=== PATIENT | female | born 2000 | race African-American/Black ===

== ENCOUNTER 2024-10-27 01:09 | Emergency (ER) | payer MEDICAID, OTHER ==
[~2024-10-27] VITALS: Ht 167.6 cm; Wt 120.0 kg
[2024-10-27] MEDS: NALOXONE HCL 0.4 MG/ML VIAL IV ONE (02:00)
[2024-10-27] MEDS: SODIUM CHLORIDE 0.9% 2,000 ML IV ONE (02:00)
--- NOTE | 2024-10-27 02:09 | ED.PDOC ---
Psychiatric HPI Comments 23-year-old female came to ER for mental health issues. Patient is an extremely poor informant. Patient has no train of thought, with poor eye contact, speaking random words, some incomprehensible and sometimes incoherent. She appears to be homeless. When questioned if she takes any alcohol or drugs, she said yes, "but not recently", and she was unable to say which drug she took. Unsure if she is suicidal or not. Unsure also if she is having hallucinations. Chief Complaint: Mental Health Time Seen by MD: 02:07 Reviewed Notes: Nurses Notes Information Source: Patient Mode of Arrival: Ambulatory Severity: Unable to Care for Self, Unable to Control Self Severity of Pain: None Severity of Mental Status: Severe Severity of Symptoms: Severe Timing: Hours Duration: Since onset Prehospital treatment: None Presents with: Unclear Thinking, Bizarre Behavior Circumstance: Causing a Disturbance Current substance abuse: Amphetamines, None (Fentanyl) Stressors: Homeless History of: Substance Abuse Quality: Confusion Associated signs and symptoms: Hopeless, Anxiety, Amphetamines, Agitation, Confusion Past Medical History PAST MEDICAL HISTORY: Pt Confused Surgical History: Pt Confused [employer] History: Pt Confused Family History Family History: Pt Confused Social History Smoker: Pt Confused Alcohol: Pt Confused Drugs: Methamphetamine, Other (Fentanyl) Lives In: Pt Confused Constitutional: denies: chills, diaphoresis, fatigue, fever, malaise, sweats, weakness, others EENTM: denies: blurred vision, double vision, ear bleeding, ear discharge, ear drainage, ear pain, ear ringing, eye pain, eye redness, hearing loss, mouth pain, mouth swelling, nasal discharge, nose bleeding, nose congestion, nose pain, photophobia, tearing, throat pain, throat swelling, voice changes, others Respiratory: denies: cough, hemoptysis, orthopnea, SOB at rest, shortness of breath, SOB with excertion, stridor, wheezing, others Cardiovascular: denies: chest pain, dizzy spells, diaphoresis, Dyspnea on exertion, edema, irregular heart beat, left arm pain, lightheadedness, palpitations, PND, syncope, others Gastrointestinal: denies: abdomen distended, abdominal pain, blood streaked bowels, constipated, diarrhea, dysphagia, difficulty swallowing, hematemesis, melena, nausea, poor appetite, poor fluid intake, rectal bleeding, rectal pain, vomiting, others Genitourinary: denies: abnormal vagina bleeding, burning, dyspareunia, dysuria, flank pain, frequency, hematuria, incontinence, pain, , vagina discharge, urgency, others Neurological: denies: dizziness, fainting, headache, left sided numbness, left sided weakness, numbness, paresthesia, pre-existing deficit, right sided numbness, right sided weakness, seizure, speech problems, tingling, tremors, weakness, others Musculoskeletal: denies: back pain, gout, joint pain, joint swelling, muscle pain, muscle stiffness, neck pain, others Integumetry: denies: bruises, change in color, change in hair/nails, dryness, laceration, lesions, lumps, rash, wounds, others Allergic/Immunocompromised: denies: Difficulty Healing, Frequent Infections, Hives, Itching, others Hematologic/Lymphatic: denies: anemia, blood clots, easy bleeding, easy bruising, swollen glands, others Endocrine: denies: excessive hunger, excessive sweating, excessive thirst, excessive urination, flushing, intolerance to cold, intolerance to heat, unexplained weight gain, unexplained weight loss, others Psychiatric: reports: anxiety; denies: bipolar disorder, depression, hopeless, panic disorder, schizophrenia, sleepless, suicidal, others Unable to Obtain due to: Altered Mental Status Physical Exam General Appearance: Moderate Distress (Patient had broken train of thought it appears to be under the influence of an unknown narcotic. Patient was a poor medical records secretary.), Normal HEENT: Normal ENT Inspection, Pharynx Normal, TMs Normal Neck: Full Range of Motion, Non-Tender, Normal, Normal Inspection Respiratory: Chest Non-Tender, Lungs Clear, No Accessory Muscle Use, No Respiratory Distress, Normal Breath Sounds Cardiovascular: No Edema, No JVD, No Murmur, No Gallop, Normal Peripheral Pulses, Regular Rate/Rhythm Breast Exam: Deferred Gastrointestinal: No Pulsatile Mass, Normal Bowel Sounds, Soft Genitalia: Deferred Pelvic: Deferred Rectal: Deferred Extremities: No calf tenderness, Normal inspection, Normal range of motion, Non-tender, No pedal edema Musculoskeletal : Apperance: Normal Neurologic: Disoriented Cerebellar Function: NOT DONE Reflexes: NOT DONE Skin: Dry, Normal Color, Warm Lymphatic: No Adenopathy Was a procedure done? Was a procedure done?: No Psych Differential Dx Psych. Differential Dx: Anxiety, Bipolar Disorder, Depression, Panic Disorder, Schizoprenia OD Differential Dx: Substance Abuse X-Ray, Labs, Meds, VS Comment Studies were pending at time of this note. Patient will remain in the ED for a tele psych consult as well as a social service consult to assess her housing and possible psychiatric placement needs. Time of 1ST Reevaluation: 02:14 Reevaluation 1ST: Improved Consultation: PCP, Psychiatry Patient Education/Counseling: Diagnosis, Treatment Family Education/Counseling: Diagnosis, Treatment, No Family Present Departure 1 Departure Time of Disposition: 02:14 Impression: Primary Impression: Psychosis Additional Impression: Illicit drug use Disposition: 30 STILL A PATIENT Condition: Fair Discharged With: Self Critical Care Note Critical Care Time?: No Stability Stability form required: No Heart Score Heart Score: Heart Score Response (Comments) Value History N/A 0 EKG N/A 0 Age N/A 0 Risk Factors N/A 0 Troponin N/A 0 Total 0 I personally scribed for HECTOR SIMPSON PAC ([email or web address]) on 10/27/24 at 02:09. E lectronically submitted by Petey Matute ([email or web address]). HECTOR SIMPSON PAC Oct 27, 2024 02:09
[2024-10-27 02:38] LABS: Basophils # (auto) 0 10 ^3/uL (0-0.2); Basophils % (auto) 0.5 % (0.0-2.0); Eosinophils # (auto) 0 10 ^3/uL (0-0.8); Eosinophils % (auto) 0.1 % (0.0-7.0); Hematocrit 40.7 % (36.0-46.0); Hemoglobin 14.4 g/dL (12.2-16.2); Lymphocytes % (auto) 32.3 % (10.0-50.0); Mean Corpuscular Hemoglobin 29.5 pg (28.0-32.0); Mean Corpuscular Hgb Conc. 35.4 g/dL (32.0-36.0); Mean Corpuscular Volume 83.3 fL (80.0-100.0); Monocytes # (auto) 0.5 10 ^3/uL (0-1.3); Monocytes % (auto) 7.4 % (0.0-12.0); Neutrophils # (auto) 3.8 10 ^3/uL (1.6-8.6); Neutrophils % (auto) 59.7 % (37.0-80.0); Nucleated Red Blood Cells % 0.6 %; Platelet Count (auto) 397 10^3/uL (140-450); Red Blood Cells 4.88 10^6/uL (4.0-5.20); Red Cell Distribution Width 15.3 % (11.8-14.3); White Blood Cell 6.3 10^3/uL (4.4-10.8)
[2024-10-27 02:39] LABS: Chloride 107 mmol/L (98-107); Sodium 139 mmol/L (136-145)
[2024-10-27 02:40] LABS: Anion Gap 6 (5-15); Carbon Dioxide 26 mmol/L (20-31)
[2024-10-27 02:45] LABS: BUN/Creatinine Ratio 14.9 (10.0-20.0); Blood Urea Nitrogen 11 mg/dL (9-23); Glucose 90 mg/dL (74-106)
[2024-10-27 02:52] LABS: Calcium 10.6 mg/dL (8.7-10.4)
[2024-10-27 11:16] VITALS: PULSE 89; RESP 12; O2SAT 98
--- NOTE | 2024-10-27 12:49 | DVHINCON2 ---
Date of Service if different f: Oct 27, 2024 Consultation ([facility]) Progress: Somewhat better Labs Laboratory Tests Test 10/27/24 02:10 10/27/24 11:53 White Blood Count 6.3 10^3/uL (4.4-10.8) Red Blood Count 4.88 10^6/uL (4.0-5.20) Hemoglobin 14.4 g/dL (12.2-16.2) Hematocrit 40.7 % (36.0-46.0) Mean Corpuscular Volume 83.3 fL (80.0-100.0) Mean Corpuscular Hemoglobin 29.5 pg (28.0-32.0) Mean Corpuscular Hemoglobin Concent 35.4 g/dL (32.0-36.0) Red Cell Distribution Width 15.3 % (11.8-14.3) Platelet Count 397 10^3/uL (140-450) Mean Platelet Volume 7.0 fL (6.9-10.8) Neutrophils (%) (Auto) 59.7 % (37.0-80.0) Lymphocytes (%) (Auto) 32.3 % (10.0-50.0) Monocytes (%) (Auto) 7.4 % (0.0-12.0) Eosinophils (%) (Auto) 0.1 % (0.0-7.0) Basophils (%) (Auto) 0.5 % (0.0-2.0) Neutrophils # (Auto) 3.8 10 ^3/uL (1.6-8.6) Lymphocytes # (Auto) 2.0 10 ^3/uL (0.4-5.4) Monocytes # (Auto) 0.5 10 ^3/uL (0-1.3) Eosinophils # (Auto) 0 10 ^3/uL (0-0.8) Basophils # (Auto) 0 10 ^3/uL (0-0.2) Nucleated Red Blood Cells 0.6 % Sodium Level 139 mmol/L (136-145) Potassium Level 4.0 mmol/L (3.5-5.1) Chloride Level 107 mmol/L (98-107) Carbon Dioxide Level 26 mmol/L (20-31) Anion Gap 6 (5-15) Blood Urea Nitrogen 11 mg/dL (9-23) Creatinine 0.74 mg/dL (0.550-1.02) Glomerular Filtration Rate Calc 117 mL/min (>90) BUN/Creatinine Ratio 14.9 (10.0-20.0) Serum Glucose 90 mg/dL (74-106) Calcium Level 10.6 mg/dL (8.7-10.4) Urine Color Colorless (Yellow) Urine Clarity Clear (Clear) Urine pH 6.5 (5.0-9.0) Urine Specific [place] 1.000 (1.001-1.035) Urine Protein Negative (Negative) Urine Ketones Negative (Negative) Urine Blood Negative /uL (Negative) Urine Nitrite Negative (Negative) Urine Bilirubin Negative (Negative) Urine Urobilinogen Normal mg/dL (Negative) Urine Leukocyte Esterase Negative /uL (Negative) Urine RBC <1 /hpf (0 - 4) Urine Microscopic WBC 1 /HPF (0-5) Urine Squamous Epithelial Cells Few /hpf (<5) Urine Bacteria Few /hpf (None Seen) Urine Glucose Normal mg/dL (Normal) Appetite: Good Side effects of medications: No Appearance: Stated age Psychomotor activity: Restless Behavioral: [place] Eye contact: Other (Poor eye contact, squinting frequenty) Speech: Pressured, Confused Affect: Inappropriate to mood Mood: Euphoric Thought processes: Disorganized Thought content: Paucity of thoughts Suicidal ideations: Absent Homicidal ideations: Absent Orientation: Person Memory intact: Poor Intellect: Average Abstractability: [place] Concentration: Poor Attention: Poor Judgement: Poor Insight: Poor Vitals Vital Signs Date Time Temp Pulse Resp B/P (MAP) Pulse Ox O2 Delivery O2 Flow Rate FiO2 10/27/24 11:16 89 12 98 Room Air* 0 21 10/27/24 10:06 98.0 107/61 (76) 98.0 Treatment plan discussed: With staff Medication adjusted: Yes Labs ordered: No Psychotherapy provided: No Type: Voluntary Diagnosis: F29. Plan : 23 y/o female presents self referred for snake bite on her face, but none is found. Pt alco has other somatic complaints. Pt weakly admits to using stimulants, endorses past inpatient psychiatric treatment. Unable to assess for SI or HI. Pt appers internally preoccupied, talks to herself, is notably "tweaking" as well. At this point it is impossible to say if this is stimulant use related or wholly bipolar/schizophrenia. Regardless, pt cannot complete 1 single coherent thought or conversation. Given her dire presentation the pt can be diagnosied with F 29 and is not able to function in the community. History of Present Illness Reason for Consult : Pt came to the hospital c/o snake bite on her face and things crawling on her skin. The ED provider was unable to get much info from her b/c she was not making much sense and was a poor historian. HPI : I came here for a snake bite... Pt is not norma to provide much information past this 1 statement. She seems to start talking about something or other and interrupts herself and stops talking or rambles incoherently. The pt is also having jerky movements along her spine, shows odd, inappropriate and bizarre affect intermittently. Pt is more concerned with eating her sandwich rather than having a conversation. Past Psychiatric History : Says yes to past hospitalization - no details provided. Past Medical History : Unable to assess. Social History : Homeless. Admits to drug use, admits to stimulant use. ZACK PURVIS MD Oct 27, 2024 12:49
[2024-10-27 13:22] LABS: Urine Bacteria MOD /hpf (None Seen); Urine Blood Negative /uL (Negative); Urine Clarity Ex.Turbid (Clear); Urine Color Light-Orange (Yellow); Urine Mucus FEW (None Seen); Urine Protein, UAD 1+ (Negative); Urine Specific Gravity 1.034 (1.001-1.035); Urine Squamous Epithelial Cell MOD /hpf (<5); Urine Urobilinogen 4 mg/dL (Negative); Urine WBC 17 /HPF (0-5)
[2024-10-27 13:46] LABS: Cannabinoid Screen, Urine Pos (NEGATIVE)
[2024-10-27 13:49] LABS: Amphetamine Screen, Urine Pos (NEGATIVE); Barbiturate Scree,Urine Neg (NEGATIVE); Benzodiazephine Screen, Urine Neg (NEGATIVE); Cocaine Screen, Urine Neg (NEGATIVE); Opiate Scree,Urine Neg (NEGATIVE); Phencyclidine Screen, Urine Neg (NEGATIVE)
[2024-10-27] MEDS: NITROFURANTOIN 100 mg CAP PO ONE ×2 (16:00→18:00)
[2024-10-27] MEDS: BENZTROPINE MESY 0.5 MG TAB PO ONE (21:52)
[2024-10-27] MEDS: risperiDONE 1 MG TAB PO ONE (21:52)
--- NOTE | 2024-10-27 22:39 | DVHINCON2 ---
Date of Service if different f: Oct 27, 2024 Time of Service: 22:32 Consult Consult Note PSYCHIATRY ED F/U CONSULT Pt seen today for reassessment and to determine if 5150 hold is warranted Briefly, pt presented to ED claiming she got bit by snake and c/o tactile hallucinations, admits to recent drug use but cannot elaborate specific drug of use Pt p/w moderate thought disorder, confusion, disorganized speech, disorganized TP, paranoia, RTIS, impaired reality testing, mild agitation, restlessness, poor sleep, anxiety, possible decline in self care. Pt also homeless Currently rx'd cogentin .5mg bid, risperidone 1mg bid Denies SI/HI when asked MSE: General Appearance/Behavior: Alert and awake; appears stated age, somewhat fair grooming and hygiene; calm and cooperative but confused, fair eye contact, mild restlessness noted Speech: incoherent and mumbling at times Thought Process: limited, impoverished, impaired Thought Content: Abnormal Thoughts and Perceptions: possibly Homicidality / Violent Thoughts: None Suicidality: adamantly denies SI Hallucinations: denies AVH Delusions: + paranoia Obsessions /compulsions : None Judgment and Insight: limited.poor Mood & Affect: "okay" with mood-congruent, confused/guarded Orientation: oriented to person, place, time Assessment: Pt seen today for reassessment and to determine if 5150 hold is warranted pt presented to ED claiming she got bit by snake and c/o tactile hallucinations, admits to recent drug use but cannot elaborate specific drug of use Pt p/w moderate thought disorder, confusion, disorganized speech, disorganized TP, paranoia, RTIS, impaired reality testing, mild agitation, restlessness, poor sleep, anxiety, possible decline in self care. Pt also homeless Pt awaiting medical clearance Pt will benefit from inpatient psychiatric admission for safety, psychiatric stabilization and possible medication initiation/optimization. Pt willing to transfer to inpt psych hospitalization voluntarily but recommend 5150 hold for GD in setting of thought disorder, homelessness, and unable to care for self Primary Diagnosis: Psychotic disorder unspecified. R/o SIPD Recommend 5150 GD and transfer to inpt psych facility for higher level of care per pts request 1:1 sitter is recommended Obtain collateral info from external sources if/when available Recommend continuation of current med regimen - cogentin .5mg bid, risperidone 1mg bid Reconsult telepsych services if pt requests to be discharged from ED prior to transfer/upon hold expiration Pt verbalized understanding and is receptive to above tx plan This case was discussed with ED nurse/provider and all parties in agreement with above tx plan Saroj Barajas MD Plan discussed with: Patient SAROJ BARAJAS MD Oct 27, 2024 22:39
[2024-10-28 08:00] VITALS: PULSE 100; RESP 14; O2SAT 98
[2024-10-29 08:00] VITALS: PULSE 64; RESP 12; O2SAT 93
[2024-10-29] MEDS: HYDROcodone-ACET 5/325MG TAB PO ONE (09:55)
[2024-10-29 20:15] VITALS: O2SAT 96
[2024-10-30 08:43] VITALS: BP 107/64; PULSE 91; RESP 14; TEMP 97.8
[2024-10-30 08:44] VITALS: O2SAT 99
== END 2024-10-30 09:36 | disposition left against medical advice (07) ==
LOC: ER 01:09
DX: F29 Unspecified psychosis not due to a substance or known physiological condition (principal); F15.10 Other stimulant abuse, uncomplicated; F31.9 Bipolar disorder, unspecified; F41.9 Anxiety disorder, unspecified; F17.200 Nicotine dependence, unspecified, uncomplicated; Z59.00 Homelessness unspecified; Z79.899 Other long term (current) drug therapy
CPT/HCPCS: 36415; 80048; 80307; 81001; 85025; 99285; J2310

== ENCOUNTER 2024-11-03 17:31 | Emergency (ER) | payer MEDICAID | END 2024-11-03 17:33 | disposition left against medical advice (07) | LOC: ER 17:31 | DX: F99 Mental disorder, not otherwise specified (principal); Z53.21 Procedure and treatment not carried out due to patient leaving prior to being seen by health care provider ==